=== PATIENT | female | born 1945 | race Caucasian/White ===

== ENCOUNTER 2017-05-06 08:03 | Emergency (ER) | payer OTHER ==
[~2017-05-06] VITALS: Ht 167.6 cm; Wt 79.3 kg
[2017-05-06] MEDS ORDERED: NAPROSYN500 MG PO (12:03)
[2017-05-06 12:52] VITALS: BP 125/77
== END 2017-05-06 12:54 | disposition home or self-care (01) ==
LOC: EME 08:03
DX: M70.71 Other bursitis of hip, right hip (principal); M16.11 Unilateral primary osteoarthritis, right hip; M54.5 Low back pain; F03.90 Unspecified dementia, unspecified severity, without behavioral disturbance, psychotic disturbance, mood disturbance, and anxiety; G20 Parkinson's disease
CPT/HCPCS: 72131; 73502; 73700; 99281; 99283; J1885

== ENCOUNTER → 2018-02-28 | Outpatient (CLI) | payer OTHER ==
[~2018-02-28] MED LIST: NAPROSYN500 MG PO
== END | disposition home or self-care (01) ==
DX: R13.12 Dysphagia, oropharyngeal phase (principal); G20 Parkinson's disease
CPT/HCPCS: 92611 GN; G8996 GN; G8997 GN; G8998 GN